=== PATIENT | male | born 1980 | race Caucasian/White ===

== ENCOUNTER 2020-03-12 07:35 | Emergency (ER) | payer OTHER ==
[2020-03-12 08:13] VITALS: BP 144/92; PULSE 93
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
== END 2020-03-12 09:00 | disposition home or self-care (01) ==
LOC: JD.ED 07:35
DX: J70.5 Respiratory conditions due to smoke inhalation (principal); E11.9 Type 2 diabetes mellitus without complications; Z79.84 Long term (current) use of oral hypoglycemic drugs
CPT/HCPCS: 82375; 99282; 99283

== ENCOUNTER 2024-12-27 00:42 | Emergency (ER) | payer OTHER ==
[2024-12-27] MEDS ORDERED: Sodium Chloride 0.9% 10 ML Syringe FLUSH PRN (01:01)
[2024-12-27 01:08] LABS: BASOPHILS ABSOLUTE AUTO 0.1 K/mm3 (0.0-0.2); BASOPHILS PERCENT AUTO 0.7 % (0.0-1.0); EOSINOPHILS ABSOLUTE AUTO 0.2 K/mm3 (0.0-0.4); EOSINOPHILS PERCENT AUTO 1.6 % (0.0-6.0); HEMATOCRIT 48.1 % (42.0-52.0); HEMOGLOBIN 16.9 gm/dl (14.0-18.0); IMMATURE GRAN ABSOLUTE AUTO 0.03 K/mm3 (0.00-0.05); IMMATURE GRAN PERCENT AUTO 0.3 % (0.0-0.4); LYMPHOCYTES ABSOLUTE AUTO 2.1 K/mm3 (1.0-4.8); LYMPHOCYTES PERCENT AUTO 21.3 % (24.0-44.0); MEAN CORPUSCULAR HEMOGLOBIN 30.2 pg (28.0-32.0); MEAN CORPUSCULAR HGB CONC 35.1 g/dl (32.0-36.0); MEAN CORPUSCULAR VOLUME 85.9 fl (83.0-99.0); MEAN PLATELET VOLUME 9.5 fl (9.4-12.4); MONOCYTES ABSOLUTE AUTO 0.7 K/mm3 (0.0-0.8); MONOCYTES PERCENT AUTO 7.4 % (0.0-8.0); NEUTROPHILS ABSOLUTE AUTO 6.8 K/mm3 (1.8-7.7); NEUTROPHILS PERCENT AUTO 68.7 % (41.0-71.0); PLATELET COUNT,PLT 222 K/mm3 (150-400); WHITE BLOOD CELL COUNT,WBC 9.84 K/mm3 (3.9-11.3)
[2024-12-27] MEDS: Aspirin 81 MG Tab.Chew PO ONE (01:10)
[2024-12-27 01:27] LABS: A/G RATIO 1.3 (1-2); ALBUMIN 3.9 g/dl (3.4-5.0); ANION GAP 13.9 (5-15); BILIRUBIN TOTAL 0.3 mg/dL (0.2-1.0); BUN/CREATININE RATIO 22.5 (14-18); CALCIUM 8.9 mg/dL (8.5-10.1); CREATININE 0.8 mg/dL (0.7-1.3); EST CRCL DRUG DOSING (CG) 119.06 mL/min; POTASSIUM,K 3.9 mEq/L (3.5-5.1)
[2024-12-27] MEDS: Heparin Sodium 5,000 Units/ML Vial IVPUSH ONE (02:17)
[2024-12-27] MEDS: Heparin Sodium/D5W 250 ML IV SCH (02:18)
[2024-12-27] MEDS: Nitroglycerin 0.4 MG Tab.SL SL PRN (02:22)
[2024-12-27 02:29] LABS: INR 0.95; PROTHROMBIN TIME 10.1 SECONDS (9.7-12.0)
[2024-12-27 02:30] LABS: PTT,PARTIAL THROMBOPLSTIN TIME 26.5 SECONDS (21.7-31.4)
[2024-12-27 02:33] VITALS: BP 147/90; PULSE 82
== END 2024-12-27 02:56 ==
LOC: JD.ED 00:42
DX: I21.4 Non-ST elevation (NSTEMI) myocardial infarction (principal); E11.9 Type 2 diabetes mellitus without complications; Z79.899 Other long term (current) drug therapy
CPT/HCPCS: 36415; 71045; 73030; 80053; 84484; 85025; 85610; 85730; 93005; 96365; 99285; A9270; J1644; 93010